=== PATIENT | female | born 1945 | race Caucasian/White ===

== ENCOUNTER 2018-08-15 13:06 | Inpatient (IN) | payer OTHER ==
[~2018-08-15] VITALS: Ht 157.5 cm; Wt 68.9 kg
--- NOTE | ~2018-08-15 | CON ---
[address] [address] CONSULTATION Name: NIK YBARRA Room: [address] IN .R.#: [id number] Admission: 08/15/18 Attend Phys: Alona Lopes Discharge: Date of : 41 Report #: [id number] THIS REPORT FOR: //name// CC: Ivette Randolph [place] DATE OF SERVICE: 08/16/2018 REQUESTING PHYSICIAN: Ivette Mello MD. REASON FOR CONSULT: Odynophagia and dysphagia. HISTORY OF PRESENT ILLNESS: This is a 73-year-old female who denies any GI symptoms until a week ago when she started having GERD, dysphagia and odynophagia. This was causing her to have chest pain. She also reports that she has been having loose stool. Her last colonoscopy was 5 years ago, which was negative. She denies any hematochezia, melena or hematemesis. She denies taking any acid reducing agent. PAST MEDICAL HISTORY: Significant for history of GERD, hypothyroidism, dyslipidemia, insomnia, hypertension, COPD, appendectomy, tonsillectomy, hemorrhoids and fissure repair, COPD, knee replacement, history of right hand carpal tunnel and left hand carpal tunnel surgeries. ALLERGIES AND MEDICATIONS: Please refer to MAR. SOCIAL HISTORY: The patient lives at home. She denies tobacco or alcohol use. FAMILY HISTORY: Noncontributory. PHYSICAL EXAMINATION: VITAL SIGNS: Reveals blood pressure 190/43, respiration 18, pulse 72, temperature 98.2. LUNGS: Clear. CARDIOVASCULAR: Regular. ABDOMEN: Soft, nontender, nondistended. Bowel sounds are positive. LABORATORY DATA: Revealed sodium of 141, potassium 4.9, BUN is 16, creatinine 1.1, glucose 124. Liver function tests are all within normal limit. Albumin is 3.1. WBC 7.5 with hemoglobin of 13.7 and platelet of 240. IMAGING: Barium swallow was done today, which revealed intense spasm at the GE junction, which correlates with her pain. There is no evidence of any significant penetration or aspiration. ASSESSMENT AND PLAN: The patient with dysphagia and odynophagia, [place] [address] CONSULTATION Name: NIK YBARRA Room: [address]#: [id number] Admission: 08/15/18 Attend Phys: Alona Lopes Discharge: Date of : 41 Report #: [id number] reports gastroesophageal reflux disease for which she is currently on omeprazole 20 mg daily. We will go ahead and perform an upper endoscopy to further evaluate her symptoms. We may consider dilating her esophagus as she reports dysphagia to solids and occasionally to liquids. By: 1335 195Kavon Carter MD /nt
--- NOTE | ~2018-08-15 | PROC ---
[address] [address] PROCEDURE REPORT Name: NIK YBARRA Room: [address] IN ..#: [id number] Admission: 08/15/18 Attend Phys: Alona Lopes Discharge: Date of : 41 Report #: [id number] THIS REPORT FOR: //name// For GI report, please see the Provation report in Perceptive 7 content. By: 0711Medical Records Staff STEPHON /ELIEL
[2018-08-15 13:15] VITALS: BP 143/79
[2018-08-15] MEDS ORDERED: LASIX 80 MG TAB80 MG PO (13:25)
[2018-08-15] MEDS ORDERED: ADVAIR HFA 230M12 GM INH (13:26)
[2018-08-15] MEDS ORDERED: KLOR-CON 1010 MEQ PO (13:26)
[2018-08-15] MEDS ORDERED: TUMS PO (13:26)
[2018-08-15] MEDS ORDERED: SINGULAIR 10 MG10 M1 PO (13:27)
[2018-08-15] MEDS ORDERED: ACCUNEB SO1.25 MG/1 INH (13:27)
[2018-08-15] MEDS ORDERED: NEURONTIN 300300 M1 PO (13:28)
[2018-08-15] MEDS ORDERED: TROKENDI XR50 MG PO (13:29)
[2018-08-15] MEDS ORDERED: SYNTHROID125 MC1 PO (13:29)
[2018-08-15] MEDS ORDERED: PROTONIX40 M2 PO (13:29)
[2018-08-15] MEDS ORDERED: FOSAMAX 70 MG T70 MG PO (13:30)
[2018-08-15] MEDS ORDERED: UNICOMPLEX M TA1 TA1 PO (13:30)
[2018-08-15] MEDS ORDERED: AMBIEN 5 MG TABL5 M1 PO (13:30)
[2018-08-15] MEDS ORDERED: ATORVASTATIN CA40 MG PO (13:30)
[2018-08-15] MEDS ORDERED: VITAMIN B-1100 M1 PO (13:31)
[2018-08-15] MEDS ORDERED: VITAMIN D3400 UNIT PO (13:31)
[2018-08-15 13:35] LABS: ABSOLUTE BASOPHILS 0.1 thou/uL (0.0-0.2); ABSOLUTE EOSINOPHILS 0.2 thou/uL (0.0-0.7); ABSOLUTE LYMPHOCYTES 1.1 thou/uL (0.8-5.3); ABSOLUTE MONOCYTES 0.9 thou/uL (0.0-1.2); ABSOLUTE NEUTROPHILS 5.2 thou/uL (1.6-8.1); BASOPHILS 0.8 %; EOSINOPHILS 2.9 %; HEMATOCRIT 41.2 % (37.0-47.0); HEMOGLOBIN 13.7 gm/dL (12.0-15.0); LYMPHOCYTES 14.2 %; MCH 31.2 pg (26.0-34.0); MCHC 33.2 g/dL (28.0-37.0); MCV 93.8 fL (80.0-100.0); MONOCYTES 12.4 %; MPV 8.7 fl. (7.2-11.1); NUCLEATED RBCS 0 /100WBC; PLATELET COUNT* 240 thou/uL (150-400); POLYS 69.7 %; RDW-CV 14.5 % (10.5-14.5); WBC 7.5 thou/uL (4.0-11.0)
[2018-08-15 13:42] LABS: ANION GAP 7 mmol/L (7-16); BUN 16 mg/dL (7-18); CALCIUM 8.1 mg/dL (8.5-10.1); CHLORIDE 107 mmol/L (98-107); CO2 27 mmol/L (21-32); CREATININE 1.1 mg/dL (0.6-1.3); GLUCOSE 124 mg/dL (70-99); POTASSIUM 3.1 mmol/L (3.5-5.1); SODIUM 141 mmol/L (136-145)
[2018-08-15 13:44] LABS: PROTIME 10.3 Seconds (9.20-11.50)
[2018-08-15 13:53] LABS: ALBUMIN 3.1 g/dL (3.4-5.0); ALKALINE PHOSPHATASE 80 U/L (46-116); LIPASE 162 U/L (73-393); NT-PRO BRAIN NAT PEPTIDE 283 pg/mL (<300); SGOT 12 U/L (15-37); SGPT 30 U/L (30-65); TOTAL BILIRUBIN 0.5 mg/dL (<0.1-1.0); TROPONIN-I LEVEL <0.06 ng/mL (<0.06)
[2018-08-15 15:00] VITALS: BP 152/86
[2018-08-15 15:01] VITALS: BP 133/70
--- NOTE | 2018-08-15 17:34 | NUR ---
PT ADMITTED TO ROOM 207 VIA CART FROM ED AT APPROXIMATELY 1500. REPORT RECEIVED FROM AGNES ALVA. ADMISSION ASSESSMENT AND HISTORY COMPLETED. REFER TO CHARTING. PT ORIENTED TO ROOM AND CALL LIGHT. AT BEDSIDE. PT A&0X4, COMPLAINS OF PAIN TO CHEST WHEN DRINKING OR EATING, LASTING THE LAST 5 DAYS, STATING NITRO HELPED IN THE ED AND PAIN IS MUCH MORE TOLERABLE NOW. PT ON 2L NC PER PROTOCOL- SAT 99%, DENIES ANY SHORTNESS OF BREATH. 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 L LIMB ALERT IN PLACE. PT UP WITH 1 ASSIST AND CANE. FALL PRECAUTIONS IN PLACE-PT STATES SHE FELL WITHIN LAST 3 MONTHS. FALL AGREEMENT AND MEDICARE FORMS SIGNED AND PLACED IN CHART. D DIMER ELEVATED - VQ SCAN COMPLETED- NEGATIVE FOR PE. POTASSIUM 3.1. DR MONTIEL NOTIFIED. ORDERS RECEIVED FOR ELECTROLYTE PROTOCOL. MEDICATIONS PER DEC. PT REPOSITIONS SELF WITH REMINDERS. HOURLY ROUNDING OBSERVED. BED IN LOW POSITION. BED ALARM IN PLACE. FALL PRECAUTIONS IN PLACE. CALL LIGHT WITHIN REACH. WILL CONTINUE PLAN OF CARE.
--- NOTE | 2018-08-15 18:15 | EKG ---
[place] [address] ELECTROCARDIOGRAM REPORT Name: NIK YBARRA Room: [address] ADM IN M.R.#: [id number] Admission: 08/15/18 Attend Phys: Alona Lopes Discharge: Date of : 41 Report #: [id number] THIS REPORT FOR: //name// [facility] ED Test Date: 2018-08-15 Test Time: 13:13:17 Pat Name: NIK YBARRA Department: Room: [facility] Gender: F [employer]: Angel LOCKETT : 1945 Requested By: Jared Nicole Order Number: [id number] MD: Porter Becker Measurements Intervals [place] Rate: 96 P: 57 CT: 146 QRS: -18 QRSD: 104 T: -7 QT: 355 QTc: 449 Interpretive Statements Sinus rhythm Probable left ventricular hypertrophy Borderline T abnormalities, inferior leads Baseline wander in lead(s) V6 Compared to ECG 01/23/2007 07:23:54 T-wave abnormality now present ST (T wave) deviation no longer present Electronically Signed On 08-15-2018 18:14:56 CDT by Porter Becker [email or web address] <ELECTRONICALLY SIGNED> By: Porter Becker MD, FACC 08/15/18 1814 1313 1313 Porter Becker MD, FACC /EPI
[2018-08-15 20:00] VITALS: BP 124/66
[2018-08-15] MEDS ORDERED: NAPROSYN500 M1 PO (20:18)
[2018-08-15] MEDS ORDERED: BENADRYL25 MG PO (20:20)
[2018-08-16] VITALS (8 sets, daily range): BP systolic 90–147; BP diastolic 43–67
--- NOTE | 2018-08-16 06:05 | NUR ---
PATIENT RESTED IN BED, NO ACUTE CHANGES. PATIENT IS NOT SHOWING SIGNS OF DISTRESS. PATIENT IS NPO FOR TESTING. FALL PRECAUTIONS IN PLACE, CALL LIGHT WITH IN REACH,HOURLY ROUNDING OBSERVED, BED ALARM ON. DOCTOR NOTIFED OF PATIENT'S REQUEST FOR HOME MEDS., SEE ORDERS. DOCTOR NOITIFED OF PATIENT'S CHEST PAIN, SEE ORDERS.
--- NOTE | 2018-08-16 08:00 | NUR ---
ASSUMED CARE OF PATIENT, ASSESSMENT CHARTED. PATIENT DENIES ANY SHORTNESS OF BREATH OR NAUSEA OR VOMITTING. HAS SOME SLIGHT PAIN BUT MEDICATION WAS JUST GIVEN PRIOR TO SHIFT CHANGE, WILL CONTINUE TO MONITOR. PATIENT HAS A SWALLOW BARIUM STUDY TODAY TO EVALUATE HER ESOPHAGUS AND SWALLOWING. BED IN LOWEST POSITION, CALL LIGHT IN REACH, SOILS ANALYST IN PLACE.
--- NOTE | 2018-08-16 08:20 | NUR ---
PATIENT OFF THE FLOOR FOR TESTING
--- NOTE | 2018-08-16 10:30 | NUR ---
PATIENT BACK FROM PROCEDURE/TESTING
--- NOTE | 2018-08-16 14:35 | NUR ---
Pt out of the room for testing, spoke with at bedside. Pt is A&O. Resides at home with her . Normally active and independent. Pt has a cane and walker that she can use for mobility. No hx of SNF or HH. Goal is to return home once medically stable for dc. does not anticipate any dc needs. Following.
--- NOTE | 2018-08-16 16:55 | NUR ---
PATIENT PROGRESSING WELL TOWARDS GOALS TODAY. HAD EGD DONE, BIOPSIED ULCER, MEDICATIONS ORDERED PER GI AND TOLERATING FULL LIGQUIDS. PAIN CONTROLLED THIS SHIFT WITH IBUPROFEN. NO NAUSEA, VOMITTING OR SHORTNESS OF AIR AT THIS TIME. BED IN LOWEST POSITON, CALL LIGHT IN REACH, FALL PRECAUTIONS IN PLACE.
[2018-08-17] VITALS: BP 104/50
[2018-08-17 04:00] VITALS: BP 108/39
--- NOTE | 2018-08-17 05:41 | NUR ---
PT IS ABLE TO COMMUNICATE HER NEEDS TO STAFF EFFECTIVELY. CURRENT PAIN MEDICATION REGIMEN HAS BEEN ADEQUATE FOR CONTROLLING HER PAIN UP TO THIS TIME. LEFT ARM LIMB ALERT. FULL LIQUID DIET UP TO THIS TIME.
[2018-08-17 07:58] VITALS: BP 109/55
[2018-08-17] MEDS ORDERED: CARAFATE 1 GM TA1 G1 PO (09:07)
[2018-08-17 09:23] VITALS: BP 109/55
--- NOTE | 2018-08-17 09:43 | NUR ---
ASSESSMENT COMPLETED REFER TO COMPUTER CHARTING. PATIENT RESTING IN BED REPORTING NO PAIN, NAUSEA OR SHORTNESS OF BREATH. BED IN LOW AND LOCKED POSITION. CALL LIGHT WITHIN REACH. PATIENT ON ROOM AIR. IV AND HEART MONITOR DISCONTINUED AND REMOVED. DISCHARGE INFORMATION GIVEN TO PATIENT. VERBALIZING UNDERSTANDING AND REPORTING NO QUESTIONS AT THIS TIME. PATIENT AWAITING TRANSPORTATION AT THIS TIME.
--- NOTE | 2018-08-19 07:06 | PATH ---
[address] [address] PATHOLOGY RPT PROCEDURE Name: CHENCHO YBARRA Room: [address] IN .R.#: [id number] Admission: 08/15/18 Date of : 41 Discharge: 08/17/18 Report #: [id number] Path Case #: [id number] [facility] Accession Number: [id number] . 01 Material submitted: . ESOPHAGEAL BIOPSY . 01 Clinician provided ICD-10: R07.9 . 01 Clinical history: . None provided . 02 Diagnosis: Esophageal biopsy: - Severe nonspecific active esophagitis with ulceration, negative for granulomas, diagnostic viral inclusions and malignancy. . (JP:vjm;08/17/2018) AGA/08/17/2018 . 02 Electronically signed: . Gomez Jorge MD, Pathologist NPI- [id number] . 01 Gross description: . Received in formalin labeled "Chencho Ybarra, esophageal biopsy," are 3 segments of mcfadden soft tissue measuring 1.2 x 0.8 x 0.2 cm in aggregate dimensions and ranging from 0.3 to 0.4 cm in maximum dimension. The specimen is submitted entirely in cassette A1. (TSD; 08/16/2018) TOB/TOB . 02 Pathologist provided ICD-10: K20.9, K22.10 . 02 CPT . 658887 Specimen Comment: A courtesy copy of this report has been sent to Specimen Comment: [phone], , . Specimen Comment: Report sent to , DR MONTIEL / DR OROURKE Specimen Comment: A duplicate report has been generated due to demographic updates. Performed at: [address] [id number] MD Tang Chu MD Phone: [phone] Performed at: [address] [place] [address] PATHOLOGY RPT PROCEDURE Name: CHENCHO YBARRA Room: [address] IN M.R.#: [id number] Admission: 08/15/18 Date of : 41 Discharge: 08/17/18 Report #: [id number] Path Case #: [id number] [facility] [address] [address], [place], [place] [id number] MD Gomez Jorge MD Phone: [phone]
== END 2018-08-17 10:36 | disposition home or self-care (01) | DRG 381 ==
LOC: M.ERS 13:06 → M.2W 14:18 → M.TBA-ER 14:18 → M.2W 14:35
PROVIDERS: Emergency Medicine; ADMIT Internal Medicine
PROC: 0DB58ZX Excision of Esophagus, Via Natural or Artificial Opening Endoscopic, Diagnostic (ICD-10-PCS; principal; 2018-08-16)
DX: K22.10 Ulcer of esophagus without bleeding (principal); E51.9 Thiamine deficiency, unspecified; E44.1 Mild protein-calorie malnutrition; J98.11 Atelectasis; K44.9 Diaphragmatic hernia without obstruction or gangrene; J45.909 Unspecified asthma, uncomplicated; Z96.653 Presence of artificial knee joint, bilateral; M19.012 Primary osteoarthritis, left shoulder; M19.011 Primary osteoarthritis, right shoulder; K21.9 Gastro-esophageal reflux disease without esophagitis; E03.9 Hypothyroidism, unspecified; E78.5 Hyperlipidemia, unspecified; G47.00 Insomnia, unspecified; I10 Essential (primary) hypertension; J44.9 Chronic obstructive pulmonary disease, unspecified; R13.10 Dysphagia, unspecified; M81.0 Age-related osteoporosis without current pathological fracture; Z90.49 Acquired absence of other specified parts of digestive tract; Z90.711 Acquired absence of uterus with remaining cervical stump; Z88.8 Allergy status to other drugs, medicaments and biological substances; Z88.6 Allergy status to analgesic agent; Z91.041 Radiographic dye allergy status; Z85.3 Personal history of malignant neoplasm of breast; Z86.711 Personal history of pulmonary embolism; Z79.899 Other long term (current) drug therapy; Z68.27 Body mass index [BMI] 27.0-27.9, adult

== ENCOUNTER → 2018-09-20 | Day surgery (SDC) | payer OTHER ==
[~2018-09-20] MED LIST: ACCUNEB SO1.25 MG/1 INH; ADVAIR HFA 230M12 GM INH; AMBIEN 5 MG TABL5 M1 PO; ATORVASTATIN CA40 MG PO; B-122500 MCG PO; BENADRYL25 MG PO; CARAFATE 1 GM TA1 G1 PO; FOSAMAX 70 MG T70 MG PO; KLOR-CON 10 ER10 MEQ PO; LASIX 80 MG TAB80 MG PO; MELATONIN5 M1 PO; NAPROSYN500 M1 PO; NEURONTIN 300300 M1 PO; OMEPRAZOLE20 MG PO; PROTONIX40 M2 PO; SINGULAIR 10 MG10 M1 PO; SYNTHROID125 MC1 PO; TROKENDI XR50 MG PO; TUMS PO; UNICOMPLEX M TA1 TA1 PO; VENTOLIN HFA INH8 GM INH; VITAMIN B-1100 M1 PO; VITAMIN D3400 UNIT PO
[2018-09-20 09:18] LABS: HEMATOCRIT 42.5 % (37.0-47.0); HEMOGLOBIN 14.3 gm/dL (12.0-15.0); MCH 31.3 pg (26.0-34.0); MCHC 33.5 g/dL (28.0-37.0); MCV 93.4 fL (80.0-100.0); RBC 4.55 mil/uL (4.20-5.00); RDW-CV 14.4 % (10.5-14.5); WBC 6.8 thou/uL (4.0-11.0)
[2018-09-20 10:12] LABS: CALCIUM 8.7 mg/dL (8.5-10.1); CREATININE 1.2 mg/dL (0.6-1.3); POTASSIUM 3.1 mmol/L (3.5-5.1)
== END | disposition home or self-care (01) ==
LOC: M.SUR 08:43 → EDSTATUS 08:45 → M.SUR 08:47
PROVIDERS: Internal Medicine Gastroenterology
DX: K22.10 Ulcer of esophagus without bleeding (principal); K44.9 Diaphragmatic hernia without obstruction or gangrene; E78.5 Hyperlipidemia, unspecified; K21.9 Gastro-esophageal reflux disease without esophagitis; Z90.49 Acquired absence of other specified parts of digestive tract; Z98.890 Other specified postprocedural states; Z90.710 Acquired absence of both cervix and uterus; Z79.899 Other long term (current) drug therapy